=== PATIENT | male | born 1985 | race Caucasian/White ===

== ENCOUNTER 2017-03-01 20:23 | Emergency (ER) | payer OTHER ==
[~2017-03-01] VITALS: Ht 172.7 cm; Wt 123.2 kg
[2017-03-01 20:33] VITALS: TEMP 36.8; Ht 172.7 cm; Wt 123.2 kg
--- NOTE | 2017-03-01 21:03 | EMERGENCY ROOM VISIT NOTE ---
ED Visit Note First contact with patient: 21:02 CHIEF COMPLAINT: Nasal laceration HISTORY OF PRESENT ILLNESS: This 31-year-old male presents to the emergency department with complaint of laceration to his nose. He states he was playing with his dog and excellently got scratched by his dogs cough around 7:30 PM tonight. Initially there was a lot of bleeding, however this has been mostly stopped. He states when he looked at the laceration there appeared to be a flap and he was concerned he would need stitches. He denies any contact with the dog's mouth, and states his dog is up-to-date on immunizations. His last tetanus shot was more than 10 years ago. He denies any numbness or tingling. There was no loss of consciousness, vomiting, or unusual behavior afterwards. Denies neck pain. REVIEW OF SYSTEMS: A complete 6 point review of systems was reviewed with the patient with pertinent positives and negatives as per history of present illness. All else were negative. PMH: The patient is healthy; there is no significant medical or surgical history. SOCIAL HISTORY: Patient lives at home. Denies tobacco use. ALLERGIES: Reviewed in chart PHYSICAL EXAM: Vital Signs: Reviewed Nurse's notes. The patient is alert, oriented, and coherent. Pupils are round, equal, and react briskly to light. There is a laceration involving the skin of the septum extending just inside the right naris, edges are gaping apart with traction. It measures 0.75 cm in length. There is minimal active bleeding and no foreign material in the wound. Normal sensation EMERGENCY DEPARTMENT COURSE: I examined the patient. The laceration appears deep enough that it should need some closure. I obtained verbal consent from the patient to perform the procedure. The laceration was anesthetized using LET gel. Once proper anesthesia was achieved, the wound was cleansed with saline and Betadine and copiously irrigated. Using sterile technique, the wound edges were then approximated with 3 interrupted 6-0 nylon sutures, with good approximation and alignment, hemostasis achieved. The wound was dressed with bacitracin and a Band-Aid. The patient was provided with discharge instructions, instructed on wound care and follow-up, as well as strict return precautions should his symptoms worsen, he verbalized understanding. The patient's tetanus was updated. The patient was discharged home in stable condition and ambulatory. Current/Historical Medications Scheduled Multivitamin (Multivitamin), 1 TAB PO DAILY Allergies Coded Allergies: Penicillins (Verified Allergy, Unknown, Unknown, 03/01/17) Was a child Vital Signs Date Time Temp Pulse Resp B/P (MAP) Pulse Ox O2 Delivery O2 Flow Rate FiO2 03/01/17 23:07 72 16 148/91 98 03/01/17 20:33 36.8 72 16 148/91 98 Room Air Medications Administered Medications (Trade) Dose Ordered Sig/Judson Route Start Time Stop Time Status Last Admin Dose Admin Tetracaine/ Epinephrine/ Lidocaine (L.e.t. Gel 4%/ 1:100/0.5%) 1 ea UD STAT EXT 03/01/17 21:21 03/01/17 21:22 DC 03/01/17 21:28 1 EA Diphtheria/ Pertussis/Tetanus Vacc (Adacel Inj) 0.5 ml ONCE ONCE IM. 03/01/17 21:30 03/01/17 21:31 DC 03/01/17 21:28 0.5 ML Departure Information Impression Primary Impression: Laceration of nose without complication Dispostion Home / Self-Care Condition GOOD Patient Instructions ED Fx Nasal Laceration Sutr Or Tape, [facility] Additional Instructions Follow-up with your PCP, in urgent care, or ER for suture removal in 5-7 days. Keep wound clean and dry. Do not allow any crusting or dried blood to accumulate on sutures. If this occurs, use a 1:1 solution of hydrogen peroxide/ water on a Q-tip to clean the wound. Use an antibiotic ointment for 3-4 days, then let wound dry. Ice for swelling and pain. Ibuprofen 600 mg and Tylenol 1000 mg every 6-8 hrs as needed for pain. As with any laceration, there may be temporary or permanent nerve damage, as well as scarring. Keep covered when in sun until sutures removed then SPF 50 or higher for one year. Vitamin E oil if desired two weeks after suture removal for reduction of scar. Please seek immediate medical attention for any signs of infection (increasing redness, swelling, pus drainage, streaking up the arm, fever/chills). Work Instructions Return To Work: 1 day Problem Qualifiers Primary Impression: Laceration of nose without complication Encounter type: initial encounter Qualified Codes: S01.21XA - Laceration without foreign body of nose, initial encounter
[2017-03-01] MEDS ORDERED: LIDOCAINE/EPINEPH/TETRACAINE 1 EA SYR EXT STA (21:21)
[2017-03-01] MEDS ORDERED: DIPHTHERIA/TETANUS/PERTUSSIS 0.5 ML SYR/VIAL IM. ONE (21:30)
[2017-03-01] MEDS ORDERED: MULT-506 PO (21:36)
[2017-03-01 23:07] VITALS: BP 148/91; PULSE 72; O2SAT 98
== END 2017-03-01 23:08 | disposition home or self-care (01) ==
LOC: C.EDB 20:25 → C.EDD 23:08
DX: S01.21XA Laceration without foreign body of nose, initial encounter (principal); W54.8XXA Other contact with dog, initial encounter; Y93.83 Activity, rough housing and horseplay; Z23 Encounter for immunization